=== PATIENT | male | born 1985 | race Caucasian/White ===

== ENCOUNTER 2017-02-13 04:05 | Emergency (ER) | payer MEDICAID ==
[2017-02-13 04:13] VITALS: RESP 16; TEMP 97.5
[2017-02-13 04:30] LABS: COLOR PALE YELLOW; LEUKOCYTE ESTERASE,URINE NEGATIVE (NEGATIVE); NITRITE,URINE NEGATIVE (NEGATIVE)
--- NOTE | 2017-02-13 04:43 | EDPHY ---
H & P Stated Complaint: legs hurt, urinary frequency, blurred vision Time Seen by Provider: 02/13/17 04:23 HPI/ROS: HPI The patient presents with multiple complaints including bilateral leg pain and occasional weakness, nocturia with increased urinary frequency and occasional blurring of his vision. His symptoms have been present for several weeks, however tonight he was up 7 times to urinate and his legs are bothering him more than usual, thus he came in to be evaluated because he was unable to sleep. He says he is feeling pain from his calves down to his toes he describes an achy pain. He says sometimes his legs are giving out on him and he has fallen because of this. He is more hungry than usual and drinking more water than usual. He denies any weight loss. REVIEW OF SYSTEMS Constitutional: No fever, no chills. Eyes: No discharge. ENT: No sore throat. Cardiovascular: No chest pain, no palpitations. Respiratory: No cough, no shortness of breath. Gastrointestinal: No abdominal pain, no vomiting. Genitourinary: No hematuria. Musculoskeletal: No back pain. Skin: No rashes. Neurological: No headache. 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, lives in between here in [place] PHYSICAL General Appearance: Alert, no distress Eyes: Pupils equal and round no pallor or injection ENT, Mouth: Mucous membranes moist Respiratory: There are no retractions, lungs are clear to auscultation Cardiovascular: Regular rate and rhythm Gastrointestinal: Abdomen is soft and non-tender, no masses, bowel sounds normal Neurological: A&O, moves all extremities Skin: Warm and dry, no rashes Musculoskeletal: Neck is supple non tender Extremities: symmetrical, full range of motion Psychiatric: Patient is oriented X 3, there is no agitation Source: Patient Exam Limitations: No limitations - Personal History Current Tetanus/Diphtheria Vaccine: Yes Current Tetanus Diphtheria and Acellular Pertussis (TDAP): Yes - Medical/Surgical History Hx Asthma: No Hx Chronic Respiratory Disease: No Hx Diabetes: No Hx Cardiac Disease: No Hx Renal Disease: No Hx Cirrhosis: No Hx Alcoholism: No Hx HIV/AIDS: No Hx Splenectomy or Spleen Trauma: No Other PMH: MRSA, meningitis, new, appy - Social History Smoking Status: Current every day smoker Constitutional: Initial Vital Signs Temperature (C) 36.4 C 02/13/17 04:10 Heart Rate 72 02/13/17 04:10 Respiratory Rate 16 02/13/17 04:10 Blood Pressure 119/83 H 02/13/17 04:10 O2 Sat (%) 94 02/13/17 04:10 O2 Delivery Mode Room Air Allergies/Adverse Reactions: codeine Allergy (Verified 02/13/17 04:09) diphenhydramine [From Benadryl] Allergy (Verified 02/13/17 04:09) Sulfa (Sulfonamide Antibiotics) Allergy (Verified 02/13/17 04:09) Home Medications: Medication Instructions Recorded metFORMIN HCL [Metformin HCl] 500 mg PO BID #30 tablet 02/13/17 Medical Decision Making Differential Diagnosis: 31-year-old male presents with multiple complaints including polyuria associated with polydipsia and polyphagia, bilateral leg pain and weakness, occasional blurring of his vision. Differential diagnosis includes new onset diabetes, myositis, Guillain-[place] syndrome is a consideration, however he has 2+ DP reflexes bilaterally. In the emergency department, labs were checked and revealed hyperglycemia as well as glucose in his urine. There were no ketones or anion gap in his blood work. He likely has new onset diabetes mellitus. Have discussed this with him. He is quite upset at this as he is someone who does not like to take any medicines at all. He was given 1 L of IV fluid and insulin regular 10 units IV. Repeat blood sugar dropped to 88. I consulted with the hospitalist bi application developer Dr. Sandy. We discussed his case. She recommends starting low-dose metformin and titrating upwards. She recommends holding on sulfonylurea if the patient does not have a glucometer because he could have episodes of hypoglycemia. I discussed dietary control with the patient. I have referred him to [facility] and he says he can go there directly today. I have also put in a note for the case reviewer to see if he can have some resources for diabetic teaching. I have prescribed him metformin 500 mg twice daily to start with. We have discussed return precautions for the emergency department. - Data Points Laboratory Results: Laboratory Results 02/13/17 04:45 02/13/17 04:45 02/13/17 02/13/17 02/13/17 06:42 04:45 04:45 WBC RBC Hgb Hct MCV MCH MCHC RDW Plt Count MPV Neut % (Auto) Lymph % (Auto) [place] % (Auto) Eos % (Auto) Baso % (Auto) Nucleat RBC Rel Count Absolute Neuts (auto) Absolute Lymphs (auto) Absolute Monos (auto) Absolute Eos (auto) Absolute Basos (auto) Absolute Nucleated RBC Immature Gran % Immature Gran # Sodium 133 mEq/L L mEq/L (134-144) Potassium 4.2 mEq/L mEq/L (3.5-5.2) Chloride 99 mEq/L mEq/L (97-110) Carbon Dioxide 22 mEq/l mEq/l (22-31) Anion Gap 12 mEq/L mEq/L (8-16) BUN 15 mg/dL mg/dL (7-23) Creatinine 0.7 mg/dL mg/dL (0.7-1.3) Estimated GFR > 60 Glucose 522 mg/dL H* mg/dL (70-100) POC Glucose 88 mg/dL mg/dL (70-100) Hemoglobin A1c Pending Estim Average Glucose Pending Calcium 9.4 mg/dL mg/dL (8.5-10.4) Total Bilirubin 1.1 mg/dL mg/dL (0.1-1.4) AST 24 IU/L IU/L (17-59) ALT 62 IU/L IU/L (21-72) Alkaline Phosphatase 66 IU/L IU/L (38-126) Creatine Kinase 74 IU/L IU/L (0-224) Total Protein 6.8 g/dL g/dL (6.3-8.2) Albumin 4.3 g/dL g/dL (3.5-5.0) Urine Color Urine Appearance Urine pH Ur Specific [place] Urine Protein Urine Ketones Urine Blood Urine Nitrate Urine Bilirubin Urine Urobilinogen Ur Leukocyte Esterase Urine RBC Urine WBC Ur Epithelial Cells Urine Glucose 02/13/17 02/13/17 04:45 04:15 WBC 6.88 10^3/uL 10^3/uL (3.80-9.50) RBC 5.26 10^6/uL 10^6/uL (4.40-6.38) Hgb 14.9 g/dL g/dL (13.7-17.5) Hct 41.1 % % (40.0-51.0) MCV 78.1 fL L fL (81.5-99.8) MCH 28.3 pg pg (27.9-34.1) MCHC 36.3 g/dL g/dL (32.4-36.7) RDW 12.3 % % (11.5-15.2) Plt Count 111 10^3/uL L 10^3/uL (150-400) MPV 12.8 fL H fL (8.7-11.7) Neut % (Auto) 58.2 % % (39.3-74.2) Lymph % (Auto) 31.7 % % (15.0-45.0) [place] % (Auto) 6.4 % % (4.5-13.0) Eos % (Auto) 2.6 % % (0.6-7.6) Baso % (Auto) 0.7 % % (0.3-1.7) Nucleat RBC Rel Count 0.0 % % (0.0-0.2) Absolute Neuts (auto) 4.00 10^3/uL 10^3/uL (1.70-6.50) Absolute Lymphs (auto) 2.18 10^3/uL 10^3/uL (1.00-3.00) Absolute Monos (auto) 0.44 10^3/uL 10^3/uL (0.30-0.80) Absolute Eos (auto) 0.18 10^3/uL 10^3/uL (0.03-0.40) Absolute Basos (auto) 0.05 10^3/uL 10^3/uL (0.02-0.10) Absolute Nucleated RBC 0.00 10^3/uL 10^3/uL (0-0.01) Immature Gran % 0.4 % % (0.0-1.1) Immature Gran # 0.03 10^3/uL 10^3/uL (0.00-0.10) Sodium Potassium Chloride Carbon Dioxide Anion Gap BUN Creatinine Estimated GFR Glucose POC Glucose Hemoglobin A1c Estim Average Glucose Calcium Total Bilirubin AST ALT Alkaline Phosphatase Creatine Kinase Total Protein Albumin Urine Color PALE YELLOW Urine Appearance CLEAR Urine pH 6.0 (5.0-7.5) Ur Specific [place] 1.030 (1.002-1.030) Urine Protein NEGATIVE (NEGATIVE) Urine Ketones NEGATIVE (NEGATIVE) Urine Blood NEGATIVE (NEGATIVE) Urine Nitrate NEGATIVE (NEGATIVE) Urine Bilirubin NEGATIVE (NEGATIVE) Urine Urobilinogen NEGATIVE EU EU (0.2-1.0) Ur Leukocyte Esterase NEGATIVE (NEGATIVE) Urine RBC 1-3 /hpf /hpf (0-3) Urine WBC 1-3 /hpf /hpf (0-3) Ur Epithelial Cells TRACE /lpf /lpf (NONE-1+) Urine Glucose 3+ H (NEGATIVE) Medications Given: Discontinued Medications Sodium Chloride (Ns) 1,000 mls @ 0 mls/hr IV EDNOW ONE; Wide Open PRN Reason: Protocol Stop: 02/13/17 05:28 Last Admin: 02/13/17 05:33 Dose: 1,000 mls Insulin Human Regular (Humulin R) 10 unit IVP EDNOW ONE Stop: 02/13/17 05:27 Last Admin: 02/13/17 05:33 Dose: 10 units Point of Care Test Results: 02/13/17 06:42 POC Glucose 88 Departure - Departure Disposition: Home, Routine, Self-Care Clinical Impression: Hyperglycemia Diabetes mellitus Qualifiers: Diabetes mellitus type: other specified (including LIANE) Diabetes mellitus complication status: with hyperglycemia Diabetes mellitus long-term insulin use : without terminal carman use Qualified Code(s): E13.65 - Other specified diabetes mellitus with hyperglycemia Condition: Good Instructions: Type 2 Diabetes in Adults (ED), Diabetic Hyperglycemia (ED) Additional Instructions: Please make sure to drink plenty of fluids. You should cut down on your carbohydrate intake if possible. [facility] call [facility] today to arrange for follow-up. Also, you should be expecting a call from our ER case reviewer to help to arrange for further teaching for your diabetes. Please return to the emergency room if your feeling worse in any way. Referrals: [facility],. [Clinic] - As per Instructions Stand Alone Forms: Work Excuse Prescriptions: metFORMIN HCL [Metformin HCl] 500 mg PO BID #30 tablet
[2017-02-13 04:54] LABS: % IMMATURE GRANULYOCYTES 0.4 % (0.0-1.1); ABSOLUTE IMMATURE GRANULOCYTES 0.03 10^3/uL (0.00-0.10); ADD DIFF? NO; ADD MORPH? NO; ADD SCAN? NO; ATYPICAL LYMPHOCYTE FLAG 0 (0-99); FRAGMENT RBC FLAG 0 (0-99); HEMATOCRIT 41.1 % (40.0-51.0); HEMOGLOBIN 14.9 g/dL (13.7-17.5); LEFT SHIFT FLG 0 (0-99); LIPEMIA HEMOLYSIS FLAG 90 (0-99); MEAN CELL HEMOGLOBIN 28.3 pg (27.9-34.1); MEAN CELL HEMOGLOBIN CONCENTR. 36.3 g/dL (32.4-36.7); MEAN CELL VOLUME 78.1 fL (81.5-99.8); MEAN PLATELET VOLUME 12.8 fL (8.7-11.7); PLATELET CLUMPS FLAG 0 (0-99); PLATELET COUNT 111 10^3/uL (150-400); RED BLOOD CELL COUNT 5.26 10^6/uL (4.40-6.38); RED CELL DISTRIBUTION WIDTH 12.3 % (11.5-15.2)
[2017-02-13 05:11] LABS: ALANINE AMINOTRANSFERASE 62 IU/L (21-72); ALBUMIN 4.3 g/dL (3.5-5.0); ALKALINE PHOSPHATASE 66 IU/L (38-126); ANION GAP 12 mEq/L (8-16); ASPARTATE AMINOTRANSFERASE 24 IU/L (17-59); BILIRUBIN,TOTAL 1.1 mg/dL (0.1-1.4); CALCIUM 9.4 mg/dL (8.5-10.4); CARBON DIOXIDE 22 mEq/l (22-31); CHLORIDE 99 mEq/L (97-110); CREATININE 0.7 mg/dL (0.7-1.3); GLOMERULAR FILTRATION RATE > 60; POTASSIUM 4.2 mEq/L (3.5-5.2); SODIUM 133 mEq/L (134-144); TOTAL PROTEIN 6.8 g/dL (6.3-8.2)
[2017-02-13 05:24] LABS: GLUCOSE 522 mg/dL (70-100)
[2017-02-13] MEDS ORDERED: INSULIN REGULAR HUMAN 100 UNIT/ML IVP ONE (05:26)
[2017-02-13] MEDS ORDERED: NS 1,000 ML IV ONE (05:27)
[2017-02-13 07:05] VITALS: BP 131/86; PULSE 72; O2SAT 96
[2017-02-13 09:53] LABS: HEMOGLOBIN A1C 7.5 % (4.0-6.0)
--- NOTE | 2017-02-13 09:57 | ASMTCMCOM ---
CM Note CM Note Notes: Case Management follow up: Follow up call to patient regarding his visit to the ER last night and follow up with a PCP . I spoke with patients spouse, Alba who tells me patient has an appointment at [facility] at 1 PM today. Alba tells me that patient is taking this new diagnosis of diabetes seriously. I have encouraged her to follow up with the referral at [facility] if they decide that [facility] is not a good fit-encouraged them to be sure patient has diabetic education and a PCP to follow him and his care. Date Signed: 02/13/2017 09:54 AM Electronically Signed By:Shelly Mondragon RN
== END 2017-02-13 07:05 | disposition home or self-care (01) ==
DX: E11.65 Type 2 diabetes mellitus with hyperglycemia (principal); F17.200 Nicotine dependence, unspecified, uncomplicated; E86.9 Volume depletion, unspecified; Z79.84 Long term (current) use of oral hypoglycemic drugs
CPT/HCPCS: 96374; J1815; J2405

== ENCOUNTER 2017-02-13 19:31 | Emergency (ER) | payer MEDICAID ==
--- NOTE | 2017-02-13 20:03 | EDPHY ---
H & P Stated Complaint: vomiting and fever was dx with DM this am Time Seen by Provider: 02/13/17 20:02 HPI/ROS: CHIEF COMPLAINT: Vomiting and pruritus, recently diagnosed diabetes, began metformin today HISTORY OF PRESENT ILLNESS: The patient presents to the ED with vomiting and pruritus. The patient began taking metformin today for recently diagnosed type 2 diabetes. The patient denies any fever. The patient was seen at [facility] today. He was given a glucometer. He was given a 1 month supply of medication. He was concerned that he potentially was having an allergic reaction to metformin which prompted his visit to the ED. The patient had no complaints of a skin rash. The patient denies any additional acute complaints. He has had several months of generalized weakness, paresthesias, polyuria and polydipsia. REVIEW OF SYSTEMS: A comprehensive 10 point review of systems is otherwise negative aside from elements mentioned in the history of present illness. Source: Patient - Personal History Current Tetanus/Diphtheria Vaccine: Yes Current Tetanus Diphtheria and Acellular Pertussis (TDAP): Yes - Medical/Surgical History Hx Asthma: No Hx Chronic Respiratory Disease: No Hx Diabetes: Yes Hx Cardiac Disease: No Hx Renal Disease: No Hx Cirrhosis: No Hx Alcoholism: No Hx HIV/AIDS: No Hx Splenectomy or Spleen Trauma: No Other PMH: MRSA, meningitis, new, appy, DM - Social History Smoking Status: Current every day smoker - Physical Exam Exam: General Appearance: Alert, no distress Eyes: Pupils equal and round no pallor or injection ENT, Mouth: Mucous membranes moist Respiratory: There are no retractions, lungs are clear to auscultation Cardiovascular: Regular rate and rhythm Gastrointestinal: Abdomen is soft and nontender, no masses, bowel sounds normal Neurological: A&O, normal motor function, normal sensory exam, normal cranial nerves Skin: Warm and dry, no rashes Musculoskeletal: Neck is supple nontender Extremities: symmetrical, full range of motion Constitutional: Initial Vital Signs Temperature (C) 36.5 C 02/13/17 19:37 Heart Rate 71 02/13/17 19:37 Respiratory Rate 16 02/13/17 19:37 Blood Pressure 121/80 H 02/13/17 19:37 O2 Sat (%) 97 02/13/17 19:37 O2 Delivery Mode Room Air Allergies/Adverse Reactions: codeine Allergy (Verified 02/13/17 19:40) diphenhydramine [From Benadryl] Allergy (Verified 02/13/17 19:40) Sulfa (Sulfonamide Antibiotics) Allergy (Verified 02/13/17 19:40) Home Medications: Medication Instructions Recorded metFORMIN HCL [Metformin HCl] 500 mg PO BID #30 tablet 02/13/17 Medical Decision Making ED Course/Re-evaluation: The patient presents the ED over concerns of a possible allergic reaction. The patient is well-appearing upon arrival. I see no evidence of an obvious allergic reaction. His vital signs are stable. He did have some vomiting earlier today. The patient's blood sugars recheck and found to be 200. There continues to be no evidence of an anion gap. The patient has no significant leukocytosis or evidence of an acute abdomen on his examination. The patient will be discharged home and continue to take his metformin as prescribed. He is given a prescription for Zofran for nausea. The patient is advised to follow up as scheduled with [facility]. The patient underwent serial examinations in the ED over a 2 hour period by myself. At 9:30 a.m. he is hemodynamically stable. Differential Diagnosis: Differential diagnosis includes dehydration, allergic reaction, diabetic ketoacidosis, medication side effect, gastroparesis - Data Points Laboratory Results: Laboratory Results 02/13/17 20:20 02/13/17 20:20 02/13/17 02/13/17 20:20 20:20 WBC 8.67 10^3/uL 10^3/uL (3.80-9.50) RBC 5.20 10^6/uL 10^6/uL (4.40-6.38) Hgb 14.8 g/dL g/dL (13.7-17.5) Hct 40.4 % % (40.0-51.0) MCV 77.7 fL L fL (81.5-99.8) MCH 28.5 pg pg (27.9-34.1) MCHC 36.6 g/dL g/dL (32.4-36.7) RDW 12.2 % % (11.5-15.2) Plt Count 107 10^3/uL L 10^3/uL (150-400) MPV 12.3 fL H fL (8.7-11.7) Neut % (Auto) 62.7 % % (39.3-74.2) Lymph % (Auto) 27.5 % % (15.0-45.0) [place] % (Auto) 7.0 % % (4.5-13.0) Eos % (Auto) 2.0 % % (0.6-7.6) Baso % (Auto) 0.6 % % (0.3-1.7) Nucleat RBC Rel Count 0.0 % % (0.0-0.2) Absolute Neuts (auto) 5.44 10^3/uL 10^3/uL (1.70-6.50) Absolute Lymphs (auto) 2.38 10^3/uL 10^3/uL (1.00-3.00) Absolute Monos (auto) 0.61 10^3/uL 10^3/uL (0.30-0.80) Absolute Eos (auto) 0.17 10^3/uL 10^3/uL (0.03-0.40) Absolute Basos (auto) 0.05 10^3/uL 10^3/uL (0.02-0.10) Absolute Nucleated RBC 0.00 10^3/uL 10^3/uL (0-0.01) Immature Gran % 0.2 % % (0.0-1.1) Immature Gran # 0.02 10^3/uL 10^3/uL (0.00-0.10) Sodium 135 mEq/L mEq/L (134-144) Potassium 3.7 mEq/L mEq/L (3.5-5.2) Chloride 103 mEq/L mEq/L (97-110) Carbon Dioxide 25 mEq/l mEq/l (22-31) Anion Gap 7 mEq/L L mEq/L (8-16) BUN 13 mg/dL mg/dL (7-23) Creatinine 0.7 mg/dL mg/dL (0.7-1.3) Estimated GFR > 60 Glucose 224 mg/dL H mg/dL (70-100) Calcium 9.3 mg/dL mg/dL (8.5-10.4) Medications Given: Discontinued Medications Sodium Chloride (Ns) 1,000 mls @ 0 mls/hr IV EDNOW ONE; Wide Open PRN Reason: Protocol Stop: 02/13/17 20:05 Last Admin: 11/16/17 20:22 Dose: 1,000 mls Ondansetron HCl (Zofran) 4 mg IVP EDNOW ONE Stop: 02/13/17 20:30 Last Admin: 02/13/17 20:30 Dose: 4 mg Departure - Departure Disposition: Home, Routine, Self-Care Clinical Impression: Diabetes mellitus, Pruritus Condition: Good Instructions: Acute Nausea and Vomiting (ED) Additional Instructions: 1. Please take Zofran as needed for nausea and vomiting. 2. Return to the ED for any worsening symptoms or other concerns. 3. Continue metformin as prescribed. 4. Follow up with [facility] as scheduled. Referrals: [facility] [Other] - As per Instructions
[2017-02-13] MEDS ORDERED: NS 1,000 ML IV ONE (20:04)
[2017-02-13] MEDS ORDERED: ONDANSETRON 4 MG/2 ML VIAL ONE (20:28)
[2017-02-13] MEDS ORDERED: ONDANSETRON 4 MG/2 ML VIAL IVP ONE (20:29)
[2017-02-13 20:31] LABS: % IMMATURE GRANULYOCYTES 0.2 % (0.0-1.1); ABSOLUTE IMMATURE GRANULOCYTES 0.02 10^3/uL (0.00-0.10); ADD DIFF? NO; ADD MORPH? NO; ADD SCAN? NO; ATYPICAL LYMPHOCYTE FLAG 10 (0-99); FRAGMENT RBC FLAG 0 (0-99); HEMATOCRIT 40.4 % (40.0-51.0); HEMOGLOBIN 14.8 g/dL (13.7-17.5); LEFT SHIFT FLG 0 (0-99); LIPEMIA HEMOLYSIS FLAG 90 (0-99); MEAN CELL HEMOGLOBIN 28.5 pg (27.9-34.1); MEAN CELL HEMOGLOBIN CONCENTR. 36.6 g/dL (32.4-36.7); MEAN CELL VOLUME 77.7 fL (81.5-99.8); MEAN PLATELET VOLUME 12.3 fL (8.7-11.7); PLATELET CLUMPS FLAG 0 (0-99); PLATELET COUNT 107 10^3/uL (150-400); RED CELL DISTRIBUTION WIDTH 12.2 % (11.5-15.2)
[2017-02-13 21:08] LABS: ANION GAP 7 mEq/L (8-16); CALCIUM 9.3 mg/dL (8.5-10.4); CARBON DIOXIDE 25 mEq/l (22-31); CHLORIDE 103 mEq/L (97-110); CREATININE 0.7 mg/dL (0.7-1.3); GLOMERULAR FILTRATION RATE > 60; GLUCOSE 224 mg/dL (70-100); POTASSIUM 3.7 mEq/L (3.5-5.2); SODIUM 135 mEq/L (134-144)
[2017-02-13] MEDS ORDERED: ONDANSETRON 4MG PREPACK#2 BTL TAKEHOME ONE (21:29)
[2017-02-13 21:54] VITALS: BP 125/85; PULSE 84; RESP 17; TEMP 98.4; O2SAT 95
== END 2017-02-13 21:54 | disposition home or self-care (01) ==
DX: L29.9 Pruritus, unspecified (principal); E11.9 Type 2 diabetes mellitus without complications; F17.200 Nicotine dependence, unspecified, uncomplicated; E86.9 Volume depletion, unspecified; Z79.84 Long term (current) use of oral hypoglycemic drugs
CPT/HCPCS: 96374; J2405

== ENCOUNTER 2017-03-20 11:22 | Emergency (ER) | payer MEDICAID ==
[2017-03-20 11:28] VITALS: BP 119/86; PULSE 84; RESP 16; O2SAT 99
--- NOTE | 2017-03-20 11:44 | EDPHY ---
H & P Stated Complaint: cough, fever Time Seen by Provider: 03/20/17 11:29 HPI/ROS: CHIEF COMPLAINT: Cough, fever HISTORY OF PRESENT ILLNESS: 31-year-old male history of diabetes, daily smoker , complaining of 3 days of productive cough. No chest pain. No back pain. No abdominal pain. No dyspnea. No syncope or near syncope. No fever or chills. No sore throat. No otalgia. No nuchal rigidity. No headache. REVIEW OF SYSTEMS: A ten point review of systems was performed and is negative with the exception of the items mentioned in the HPI PAST MEDICAL & SURGICAL HISTORY: Diabetes SOCIAL HISTORY: , daily smoker, no cocaine use no methamphetamine use PHYSICAL EXAM (Prior to examination, patient consented to physical exam, hands were washed and my usual and customary physical exam procedures followed) 1) GENERAL: Well-developed, well-nourished, alert and oriented. Appears nontoxic speaking full sentences. 2) HEAD: Normocephalic, atraumatic 3) HEENT: Pupils equal, round, reactive to light bilaterally. Sclera anicteric. Nasopharynx, oropharynx, clear, no lesions. No tonsillar enlargement or exudate Ears bilaterally with normal tympanic membranes. 4) NECK: Full range of motion, no meningeal signs. 5) LUNGS: Clear auscultation bilaterally, no wheezes, no rhonchi, no retractions. 6) HEART: Regular rate and rhythm, no murmur, no heave, no gallop. 7) ABDOMEN: No guarding, no rebound, no focal tenderness, negative McBurney's, negative Bobby's, negative Rovsing's, negative peritoneal sign, 8) MUSCULOSKELETAL: Moving all extremities, no focal areas of tenderness, no obvious trauma. No peripheral edema or discoloration. 9) BACK: No CVA tenderness, no midline vertebral tenderness, no fluctuance, no step-off, no obvious trauma, no visual or palpable abnormality. 10) SKIN: No rash, no petechiae. 11) Psychiatric: Patient is oriented X 3, there is no agitation. DIFFERENTIAL DIAGNOSIS: In no particular include but limited to pneumonia, bronchitis, pneumothorax - Personal History Current Tetanus/Diphtheria Vaccine: Yes Current Tetanus Diphtheria and Acellular Pertussis (TDAP): Yes - Medical/Surgical History Hx Asthma: No Hx Chronic Respiratory Disease: No Hx Diabetes: Yes Hx Cardiac Disease: No Hx Renal Disease: No Hx Cirrhosis: No Hx Alcoholism: No Hx HIV/AIDS: No Hx Splenectomy or Spleen Trauma: No Other PMH: MRSA, meningitis, new, appy, DM - Social History Smoking Status: Current every day smoker Constitutional: Initial Vital Signs Temperature (C) 36.6 C 03/20/17 11:26 Heart Rate 84 03/20/17 11:26 Respiratory Rate 16 03/20/17 11:26 Blood Pressure 119/86 H 03/20/17 11:26 O2 Sat (%) 99 03/20/17 11:26 O2 Delivery Mode Room Air Allergies/Adverse Reactions: codeine Allergy (Verified 03/20/17 11:25) diphenhydramine [From Benadryl] Allergy (Verified 03/20/17 11:25) Sulfa (Sulfonamide Antibiotics) Allergy (Verified 03/20/17 11:25) Home Medications: Medication Instructions Recorded Ondansetron Odt [Zofran Odt] 4 mg PO Q4PRN PRN #20 tab 02/13/17 metFORMIN HCL [Metformin HCl] 500 mg PO BID #30 tablet 02/13/17 AZITHROMYCIN [Z-PACK] 500 mg PO DAILY #1 packet 03/20/17 Albuterol [Proventil Inhaler HFA 1 - 2 puffs IH Q4PRN PRN #1 mdi 03/20/17 (*)] Medical Decision Making - Diagnostics Imaging Results: Imaging Impressions Chest X-Ray 03/20/17 11:36 Impression: Prominence of perihilar interstitial markings and peribronchial cuffing. Findings are nonspecific but can be seen with bronchitis, reactive airway disease, or viral process. ED Course/Re-evaluation: Patient is not hypoxemic, no definitive infiltrate on chest x-ray. No pneumothorax on chest x-ray. I do not think that hospital admission is currently indicated. He is past the window for influenza treatment. Plan will be discharged with oral antibiotics, usual and customary respiratory precautions and instructions. Recommend smoking cessation. Care of patient under supervision of primary supervising physician Dr Vela . Departure - Departure Disposition: Home, Routine, Self-Care Clinical Impression: Acute bronchitis Qualifiers: Bronchitis organism: unspecified organism Qualified Code(s): J20.9 - Acute bronchitis, unspecified Condition: Good Instructions: Acute Bronchitis (ED) Additional Instructions: Return to the emergency department immediately for change in breathing habits, change in voice, change in swallowing habits, change in mental status, or any other symptoms that concern you. Referrals: [facility] [Other] - 1-2 days without fail Prescriptions: Albuterol [Proventil Inhaler HFA (*)] 1 - 2 puffs IH Q4PRN PRN #1 mdi PRN Reason: Cough, Moderate AZITHROMYCIN [Z-PACK] 500 mg PO DAILY #1 packet
[2017-03-20 12:01] VITALS: TEMP 98.2
== END 2017-03-20 12:01 | disposition home or self-care (01) ==
DX: J20.9 Acute bronchitis, unspecified (principal); E11.9 Type 2 diabetes mellitus without complications; F17.200 Nicotine dependence, unspecified, uncomplicated; Z79.84 Long term (current) use of oral hypoglycemic drugs

== ENCOUNTER 2017-03-22 05:20 | Emergency (ER) | payer MEDICAID ==
[2017-03-22 05:25] VITALS: TEMP 98.6
[2017-03-22 06:00] VITALS: BP 112/58; PULSE 79; RESP 18; O2SAT 95
--- NOTE | 2017-03-22 06:08 | EDPHY ---
H & P Stated Complaint: Bronchitis Time Seen by Provider: 03/22/17 05:44 HPI/ROS: HPI The patient presents with cough, rhinorrhea, sore throat, sneezing, fever which have been present for the last several days. He was seen in the emergency department 2 days ago and had a chest x-ray, consistent with bronchitis. He was started on azithromycin albuterol, but he says he is no better. As he had some posttussive emesis earlier today is and had a fever to 101.4. He reports his blood sugars have been in the 80s to 120s.. REVIEW OF SYSTEMS Constitutional: Fever at home Eyes: No discharge. ENT: Positive for sore throat. Cardiovascular: No chest pain, no palpitations. Respiratory: Positive for cough, no shortness of breath. Gastrointestinal: No abdominal pain, no vomiting. Genitourinary: No hematuria. Musculoskeletal: No back pain. Skin: No rashes. Neurological: No headache. PMHx: Diabetes, recent diagnosis, on metformin Soc Hx: History of smoking PHYSICAL General Appearance: Alert, no distress Eyes: Pupils equal and round no pallor or injection ENT, Mouth: Mucous membranes moist Respiratory: There are no retractions, lungs are clear to auscultation Cardiovascular: Regular rate and rhythm Gastrointestinal: Abdomen is soft and non-tender, no masses, bowel sounds normal Neurological: A&O, moves all extremities Skin: Warm and dry, no rashes Musculoskeletal: Neck is supple non tender Extremities: symmetrical, full range of motion Psychiatric: Patient is oriented X 3, there is no agitation Source: Patient Exam Limitations: No limitations - Personal History Current Tetanus/Diphtheria Vaccine: Yes - Medical/Surgical History Hx Asthma: No Hx Chronic Respiratory Disease: No Hx Diabetes: Yes Hx Cardiac Disease: No Hx Renal Disease: No Hx Cirrhosis: No Hx Alcoholism: No Hx HIV/AIDS: No Hx Splenectomy or Spleen Trauma: No Other PMH: MRSA, meningitis, new, appy, DMtype 2 - Social History Smoking Status: Current every day smoker Constitutional: Initial Vital Signs Temperature (C) 37 C 03/22/17 05:23 Heart Rate 84 03/22/17 05:23 Respiratory Rate 16 03/22/17 05:23 Blood Pressure 98/52 L 03/22/17 05:23 O2 Sat (%) 97 03/22/17 05:23 O2 Delivery Mode Room Air Allergies/Adverse Reactions: codeine Allergy (Verified 03/20/17 11:25) diphenhydramine [From Benadryl] Allergy (Verified 03/20/17 11:25) Sulfa (Sulfonamide Antibiotics) Allergy (Verified 03/20/17 11:25) Home Medications: Medication Instructions Recorded Ondansetron Odt [Zofran Odt] 4 mg PO Q4PRN PRN #20 tab 02/13/17 metFORMIN HCL [Metformin HCl] 500 mg PO BID #30 tablet 02/13/17 AZITHROMYCIN [Z-PACK] 500 mg PO DAILY #1 packet 03/20/17 Albuterol [Proventil Inhaler HFA 1 - 2 puffs IH Q4PRN PRN #1 mdi 03/20/17 (*)] Oseltamivir Phosphate [Tamiflu 75 75 mg PO BID #10 cap 03/22/17 mg (*)] Medical Decision Making Differential Diagnosis: 31-year-old male with diabetes on metformin presents with cough, rhinorrhea, sore throat, sneezing, fever, recently treated for bronchitis with albuterol and azithromycin. His Differential diagnosis includes viral URI, pneumonia, influenza. Flu swab is positive for flu B. Because of his history of diabetes I will treat him with Tamiflu. - Data Points Laboratory Results: 03/22/17 05:55 Nasal Influenza A PCR NEGATIVE FOR FLU A (NEGATIVE) Nasal Influenza B PCR FLU B DETECTED (NEGATIVE) Departure - Departure Disposition: Home, Routine, Self-Care Clinical Impression: Influenza Condition: Good Instructions: Influenza (ED) Referrals: Yahir Benson, TIPPING MACHINE OPERATOR [Primary Care Provider] - As per Instructions Prescriptions: Oseltamivir Phosphate [Tamiflu 75 mg (*)] 75 mg PO BID #10 cap
[2017-03-22] MEDS ORDERED: OSELTAMIVIR PHOSPHATE 75 MG CAP PO ONE (07:24)
== END 2017-03-22 07:53 | disposition home or self-care (01) ==
DX: J10.1 Influenza due to other identified influenza virus with other respiratory manifestations (principal); E11.9 Type 2 diabetes mellitus without complications; F17.200 Nicotine dependence, unspecified, uncomplicated; Z90.49 Acquired absence of other specified parts of digestive tract; Z79.84 Long term (current) use of oral hypoglycemic drugs